=== PATIENT | male | born 1995 | race Caucasian/White ===

== ENCOUNTER 2023-08-12 05:42 | Emergency (ER) | payer BC, SELFPAY ==
[2023-08-12 05:44] VITALS: BP 145/98
--- NOTE | 2023-08-12 06:19 | ED.GENMED ---
History of Present Illness
General
Chief Complaint: Withdrawal Symptoms
Source: patient and family
Exam Limitations: none
Time Seen by Provider: 08/12/23 05:56
History of Present Illness
History of Present Illness:
See MDM
Past History
Past History
ED Past Medical History: None
ED Past Surgical History: None
Social History
Tobacco: Non-smoker
Alcohol: None
Phy Exam
Physical Exam
Physical Exam:
See MDM
Course
Orders/Labs/Results
Orders:
Orders
08/12/23 06:19
CT Head W/o Iv Contrast Urgent
Comment:
Reason For Exam: headache
08/12/23 06:36
Complete Blood Count/With Diff Urgent
Comprehensive Metabolic Panel Urgent
Abnormal Lab Results
08/12/23
06:36
Absolute Lymphs (auto) 1.1 L 10^3/uL
(1.2-3.4)
Lymphocytes % 19.0 L %
(20.5-51.1)
08/12/23 06:36
08/12/23 06:36
Vital Signs
Initial and Last Documented VS:
Initial Vital Signs
Temp Pulse Resp BP Pulse Ox
98.5 F 90 18 145/98 96
08/12/23 05:44 08/12/23 05:44 08/12/23 05:44 08/12/23 05:44 08/12/23 05:44
Last Documented Vital Signs
Temp Pulse Resp BP Pulse Ox
98.5 F 73 6 121/83 98
08/12/23 05:44 08/12/23 07:00 08/12/23 06:53 08/12/23 07:00 08/12/23 07:00
MDM/Problems Addressed
Differential Diagnosis Includes:
HPI and MDM Narrative:
28-year-old male presenting with parents for evaluation of ongoing anxiety and depression. Patient is more concerned that he could be going through benzodiazepine withdrawal. Patient was placed on Wellbutrin several weeks ago for ongoing
depression and anxiety. Patient states symptoms have been progressive so he took a total of 3 doses of 0.5 mg lorazepam over the past several days. After doing research, patient is concerned he could be going through withdrawal. He states he has
been going through insomnia which is new for him.
On exam, patient is anxious. Mother and father at bedside. I discussed with patient that he does not seem to be going through benzodiazepine withdrawal but will perform medical clearance with blood work and CT head given his headache. I did offer
crisis evaluation. Patient declined. He had intake yesterday at [facility] and is scheduled for outpatient therapy today
Physical exam
General: Well appearing and non-toxic
HEENT: protecting airway. Pupils equal reactive
Neck: appears supple
CV: No evidence of cyanosis. Regular rate and rhythm
Resp: No accessory muscle use. Lungs clear
Abd: Non-distended
Extremities: No deformities
Neuro: alert
Psych: Anxious
Skin: Intact
Problems Addressed including Acute and Chronic Conditions affecting care:
1. Insomnia
Acuity: acute
Prognosis: stable
Details: Likely in the setting of anxiety and depression. He is not going through benzodiazepine withdrawal
Updates
Blood work and CT head negative. I again offered inpatient evaluation but patient declined. Mother and father will bring him to his outpatient program later today
Differential Diagnosis (but not limited to): Anxiety, depression, metabolic abnormality
Testing considered: EKG
Drug therapy (if applicable): OTC meds, please see d/c instruction regarding Rx drugs
Amount and/or Complexity of Data Reviewed
Clinical info obtained from: Patient. Mother and father indicate that he has been mentally unwell over the past several weeks
External data reviewed: N/A
Labs I independently reviewed (but not limited to): Electrolytes within normal limits
Radiology: N/A
Pulse Ox: not hypoxic
EKG independently reviewed: N/A
[employer] Up Operator: N/A
Critical Care: N/A
Risk of Complication:
Social Determinants of health: Good social support
Discussed with other providers: N/A
Escalation of Care includes Admit/Obs: After being observed in the Emergency Department, pt stable for discharge.
Occasional wrong word or 'sound a like' substitutions may have occurred due to the inherent limitations of voice recognition software. Read the chart carefully and recognize, using context, where substitutions have occurred.
*Critical Care Note
Total Time (30-74mins, 75-104mins- exclusive of procedures): Not Applicable
ED Attending Note
-
Portions of this chart may have been created with voice recognition software.� Occasional wrong word or��sound alike� substitutions may have occurred due to the inherent limitations of voice recognition software.
Discharge Plan
Departure
Patient Disposition: Home (Routine Discharge)
Date of Disposition: 08/12/23
Time of Disposition: 08:08
Patient with high blood pressure during this ER visit?: No
Discharge Problem:
Insomnia
Referrals:
Mckinley Mosley DO [Family Provider] -
Activity Restrictions/Additional Instructions:
Please return for any worsening symptoms.
You may return at any time if you have further concerns.
As we discussed, you would benefit from inpatient psychiatric care. Please follow-up with your outpatient program today. If symptoms worsen or unchanged, please return.
Interventions
Interventions:
*Risk Screen - Suicide Last Done: 08/12/23 07:17
*General Assessment Last Done: 08/12/23 06:31
*Neglect/Abuse Screening Last Done: 08/12/23 06:31
ED- Fall Risk Assessment Last Done: 08/12/23 06:31
*ED COVID-19 Vaccine History Last Done: 08/12/23 06:29
ED- Neurological Assessment Last Done: 08/12/23 06:31
ED-Psychological Assessment Last Done: 08/12/23 06:31
Discharge Date and Time
Print Language: KENYAN
[2023-08-12 06:29] VITALS: BMI 23.0
[2023-08-12 06:53] VITALS: BP 128/88
[2023-08-12 06:55] LABS: % Basophils 0.3 % (0-2); % Eosinophils 1.3 % (0-6); % Immature Granulocytes 0.2 % (0-0.5); % Monocytes 7.5 % (1.7-9.3); % Neutrophils 71.7 % (42.2-75.2); Absolute Eosinophils 0.1 10^3/uL (0-0.7); Absolute Lymphocytes 1.1 10^3/uL (1.2-3.4); Absolute Monocytes 0.5 10^3/uL (0.1-0.6); Absolute Neutrophils 4.3 10^3/uL (1.4-6.5); Hematocrit 42.9 % (39.0-52.0); Hemoglobin 14.7 g/dL (13.0-18.0); Mean Corp Hgb Conc. 34.3 g/dL (33.0-37.0); Mean Corpuscular Hgb 29.1 pg (27.0-31.0); Mean Corpuscular Volume 84.8 fL (80.0-94.0); Mean Platelet Volume 9.9 fL (7.4-10.4); Nucleated Red Blood Cells % 0 % (-); Platelet Count 160 10^3/uL (130-400); Red Blood Cell Count 5.06 10^6/uL (4.70-6.10); Red Cell Dist. Width 12.2 % (11.5-14.5)
[2023-08-12 07:00] VITALS: BP 121/83
[2023-08-12 07:19] LABS: ALT (SGPT) 16 U/L (0-50); AST (SGOT) 17 U/L (17-59); Albumin 4.5 g/dl (3.5-5.0); Alkaline Phosphatase 57 U/L (38-126); Blood Urea Nitrogen 13 mg/dl (9-20); Calcium 9.5 mg/dl (8.4-10.2); Carbon Dioxide 26 mmol/L (22-30); Chloride 105 mmol/L (98-107); Estimated Creatinine Clearance > 125 ml/min; Glucose 99 mg/dl (70-99); Potassium 3.7 mmol/L (3.5-5.1); Sodium 139 mmol/L (135-145); Total Bilirubin 0.6 mg/dl (0.2-1.3); eGFR > 60.00
[2023-08-12 08:40] VITALS: BP 121/83
== END 2023-08-12 08:41 | disposition home or self-care (01) ==
LOC: EMR 05:42
PROVIDERS: EMERGENCY PHYSICIAN Student in an Organized Health Care Education/Training Program; FAMILY PHYSICIAN Family Medicine
DX: G47.00 Insomnia, unspecified (principal); R51.9 Headache, unspecified; F41.9 Anxiety disorder, unspecified; F32.A Depression, unspecified
CPT/HCPCS: 99284; 70450; 80053; 85025

== ENCOUNTER 2023-08-14 03:27 | Emergency (ER) | payer BC, SELFPAY ==
[2023-08-14 03:28] VITALS: BP 124/90
--- NOTE | 2023-08-14 04:40 | ED.GENMED ---
History of Present Illness
General
Chief Complaint: Sleep Disturbances
Source: patient, family (Mother who is at bedside) and previous hospital records (ED visit for very similar complaint just 2 days ago)
Exam Limitations: none
Time Seen by Provider: 08/14/23 04:25
History of Present Illness
History of Present Illness:
This is a 28-year-old gentleman who admits to significant anxiety, worry, stress that has been ongoing for a number of months. He was started on Wellbutrin XL perhaps 6 weeks ago and since then he has had difficulty sleeping.
He recently began intensive outpatient program at [facility] just 2 days ago and 2 new medications were added by the psychiatrist 2 days ago, he cannot recall the names.
He has follow-up with [facility] on Tuesday, tomorrow, August 14.
He presents to the ED with his mother with ongoing complaints of inability to sleep and he is convinced that he is suffering with benzodiazepine withdrawal after taking just 2 doses of lorazepam, given to him by a friend.
Very similar complaint during ED visit just 2 days ago. During that ER visit he underwent unremarkable laboratory studies as well as unremarkable CT of the head.
Despite multiple reassurances that he cannot physically go through benzodiazepine withdrawal after only 2 doses he is nonetheless convinced that he is 'a special case' and that this is indeed the case.
Past History
Past History
ED Past Medical History: Psychiatric
ED Past Surgical History: None
Social History
Tobacco: Non-smoker
Alcohol: None
Drug: None
Personal: Single
Living: with family
Family History
Family History: Other (Noncontributory)
Phy Exam
Physical Exam
Physical Exam:
GENERAL: 28-year-old male appears his stated age, awake and alert, mildly anxious/apprehensive, speaking in a soft voice. Mother is accompanying.
EYE: anicteric
NECK: Supple, nontender, no meningismus, no significant adenopathy.
ENT: oral mucosa is moist. No rhinorrhea.
LUNGS: No respiratory distress.
NEUROLOGICAL: Alert and oriented x3, no focal neuro deficits. Gait is clinton and steady.
SKIN: Warm and dry, normal color, skin intact. No rash.
MUSCULOSKELETAL: No clubbing or cyanosis no edema. Nontender.
PSYCH: Moderately anxious. Persistent pervasive thoughts/convinced he is suffering from benzodiazepine withdrawal. Poor insight and judgment. Denies suicidal thoughts or plan. Denies hallucinations. Normal speech pattern.
Course
Vital Signs
Initial and Last Documented VS:
Initial Vital Signs
Temp Pulse Resp BP Pulse Ox
98.2 F 86 18 124/90 97
08/14/23 03:28 08/14/23 03:28 08/14/23 03:28 08/14/23 03:28 08/14/23 03:28
Last Documented Vital Signs
Temp Pulse Resp BP Pulse Ox
98.2 F 86 18 124/90 97
08/14/23 03:28 08/14/23 03:28 08/14/23 03:28 08/14/23 03:28 08/14/23 03:28
MDM/Problems Addressed
Differential Diagnosis Includes:
Despite extensive reassurance that benzodiazepine withdrawal requires initial benzodiazepine dependence, he remains convinced that this is his issue.
Recently began intensive outpatient program at [facility], to resume tomorrow on Tuesday.
Recommend he follow-up with psychiatrist tomorrow to discuss his medications as I am concerned that the Wellbutrin that was initiated perhaps 6 weeks ago may be cause for or exacerbating his insomnia.
He was recently prescribed 2 new medications yesterday therefore I will not add additional medications including a benzodiazepine.
Encouraged to follow-up with [facility] tomorrow as already scheduled.
He has been offered a visit with [facility] crisis counselor which he declines.
Chronic conditions affecting care: Psychiatric illness
Acute Exacerbation and/or Progression of Chronic Illness: Psychiatric illness
*Pulse Oximetry
Patient hypoxic: no
*Critical Care Note
Total Time (30-74mins, 75-104mins- exclusive of procedures): Not Applicable
ED Attending Note
-
Portions of this chart may have been created with voice recognition software.� Occasional wrong word or��sound alike� substitutions may have occurred due to the inherent limitations of voice recognition software.
Discharge Plan
Departure
Patient Disposition: Home (Routine Discharge)
Date of Disposition: 08/14/23
Time of Disposition: 04:40
Patient with high blood pressure during this ER visit?: No
Condition: Good
Discharge Problem:
Generalized anxiety disorder, Acute insomnia
Instructions: Generalized Anxiety Disorder (DC), Insomnia (DC), Good sleep hygiene
Prescriptions:
No Action
bupropion HCl [Wellbutrin] 100 mg Tablet
300 mg PO DAILY
Referrals:
[facility] [Outside] - Tomorrow
Mckinley Mosley DO [Family Provider] -
Interventions
Interventions:
*Risk Screen - Suicide Last Done: 08/14/23 03:28
*General Assessment Last Done: 08/14/23 03:28
*Neglect/Abuse Screening Last Done: 08/14/23 03:28
ED-Suicide Risk Assessment Last Done: 08/14/23 04:22
ED- Neurological Assessment Last Done: 08/14/23 04:22
ED-Psychological Assessment Last Done: 08/14/23 04:22
Discharge Date and Time
Print Language: JAPANESE
[2023-08-14 05:01] VITALS: BP 120/71
== END 2023-08-14 05:03 | disposition home or self-care (01) ==
LOC: EMR 03:27
PROVIDERS: EMERGENCY PHYSICIAN Emergency Medicine; FAMILY PHYSICIAN Family Medicine
DX: G47.00 Insomnia, unspecified (principal); F41.1 Generalized anxiety disorder
CPT/HCPCS: 99281

== ENCOUNTER 2023-08-14 13:08 | Emergency (ER) | payer BC, SELFPAY ==
[2023-08-14 13:10] VITALS: BP 133/90
--- NOTE | 2023-08-14 13:56 | ED.GENMED ---
History of Present Illness
General
Chief Complaint: Crisis Evaluation
Source: patient and family
Exam Limitations: none
Time Seen by Provider: 08/14/23 13:18
Nursing documentation reviewed up to this point in time: agreed with
History of Present Illness
History of Present Illness:
Patient to ED for medical clearance. He was seen at [facility] [address] outpatient on Tuesday for his initial appointment Give Rx for Duloxetine and aripiprazole but has not started either medication. Hx of anxiety and depression. States he is taking
Wellbutrin which has not been helpful recently. Denies SI, HI. He is requesting inpatient treatment at [facility].
Past History
Past History
ED Past Medical History: Psychiatric
ED Past Surgical History: None
Social History
Tobacco: Non-smoker
Alcohol: None
Drug: None
Personal: Single
Living: with family
Family History
Family History: Other (Noncontributory)
Review of Systems
Review of Systems
Allergies reviewed?: Yes
All Other Systems: ROS reviewed and negative except as documented in HPI and ROS
Constitutional: Reports no symptoms
EENT: Reports no symptoms
Respiratory: Reports no symptoms
Cardiac: Reports no symptoms
ABD/GI: Reports no symptoms
: Reports no symptoms
Musculoskeletal: Reports no symptoms
Skin: Reports no symptoms
Neurological: Reports no symptoms
Psychiatric: Reports depression and anxiety
Phy Exam
General Physical Exam
General Presentation: well appearing and no apparent distress
General age: appears stated age
General Skin: warm and dry
General Habitus: normal
General Mental: alert
Cardiovascular Exam
Cardiovascular Exam: regular rate/rhythm and no edema
Pulmonary Exam
Pulmonary Exam: lungs clear and no respiratory distress
Gastrointestinal Exam
Gastrointestinal Exam: non tender and soft
Musculoskeletal Exam
Musculoskeletal Exam: full ROM and neuro vasc intact
Skin Exam
Skin Exam: normal color, warm/dry and no rash
Psychiatric Exam
Psychiatric Exam: depressed
Course
Orders/Labs/Results
Orders:
Orders
08/14/23 14:12
Alcohol Urgent
Complete Blood Count/With Diff Urgent
Comprehensive Metabolic Panel Urgent
Abnormal Lab Results
08/14/23
14:12
Absolute Monos (auto) 0.7 H 10^3/uL
(0.1-0.6)
Lymphocytes % 18.3 L %
(20.5-51.1)
08/14/23 14:12
08/14/23 14:12
Vital Signs
Initial and Last Documented VS:
Initial Vital Signs
Temp Pulse Resp BP Pulse Ox
99.6 F 89 18 133/90 97
08/14/23 13:10 08/14/23 13:10 08/14/23 13:10 08/14/23 13:10 08/14/23 13:10
Last Documented Vital Signs
Temp Pulse Resp BP Pulse Ox
99.6 F 89 18 133/90 97
08/14/23 13:10 08/14/23 13:10 08/14/23 13:10 08/14/23 13:10 08/14/23 13:10
*Critical Care Note
Total Time (30-74mins, 75-104mins- exclusive of procedures): Not Applicable
Update Note
Update Note:
Crisis in to see pateint. Victor will continue OP care. As per crisis, no inpatient care needed at this time and he is cleared by crisis for discharage.
ED Attending Note
-
Portions of this chart may have been created with voice recognition software.� Occasional wrong word or��sound alike� substitutions may have occurred due to the inherent limitations of voice recognition software.
Discharge Plan
Departure
Patient Disposition: Home (Routine Discharge)
Date of Disposition: 08/14/23
Time of Disposition: 14:51
Patient with high blood pressure during this ER visit?: No
Condition: Good
Covid-19: Not Applicable
Discharge Problem:
Medical clearance for psychiatric admission
Instructions: Depression, Adult (DC), Anxiety, Adult (DC)
Prescriptions:
No Action
bupropion HCl [Wellbutrin] 100 mg Tablet
300 mg PO DAILY
Referrals:
Armando Ly MD [Family Provider] -
Activity Restrictions/Additional Instructions:
Follow up with [facility] as scheduled.
Interventions
Interventions:
*Risk Screen - Suicide Last Done: 08/14/23 13:16
*General Assessment Last Done: 08/14/23 13:16
*Neglect/Abuse Screening Last Done: 08/14/23 13:16
ED- Fall Risk Assessment Last Done: 08/14/23 16:07
*ED COVID-19 Vaccine History Last Done: 08/14/23 14:06
*Nursing Disposition Last Done: 08/14/23 16:11
ED-Psychological Assessment Last Done: 08/14/23 16:07
Discharge Date and Time
Discharge Date/Time: 08/14/23 16:53
Print Language: [email or web address]
[2023-08-14 14:05] VITALS: BMI 22.4
[2023-08-14 14:21] LABS: % Basophils 0.1 % (0-2); % Eosinophils 0.5 % (0-6); % Immature Granulocytes 0.1 % (0-0.5); % Lymphocytes 18.3 % (20.5-51.1); % Monocytes 8.3 % (1.7-9.3); % Neutrophils 72.7 % (42.2-75.2); Absolute Lymphocytes 1.5 10^3/uL (1.2-3.4); Absolute Monocytes 0.7 10^3/uL (0.1-0.6); Hematocrit 42.9 % (39.0-52.0); Hemoglobin 14.8 g/dL (13.0-18.0); Mean Corp Hgb Conc. 34.5 g/dL (33.0-37.0); Mean Corpuscular Hgb 28.2 pg (27.0-31.0); Mean Corpuscular Volume 81.9 fL (80.0-94.0); Nucleated Red Blood Cells % 0 % (-); Platelet Count 205 10^3/uL (130-400); Red Blood Cell Count 5.24 10^6/uL (4.70-6.10); Red Cell Dist. Width 12.1 % (11.5-14.5); White Blood Cell Count 8.2 10^3/uL (4.8-10.8)
[2023-08-14 14:34] LABS: ALT (SGPT) 15 U/L (0-50); AST (SGOT) 18 U/L (17-59); Albumin 4.7 g/dl (3.5-5.0); Alkaline Phosphatase 54 U/L (38-126); Blood Urea Nitrogen 13 mg/dl (9-20); Calcium 9.8 mg/dl (8.4-10.2); Carbon Dioxide 27 mmol/L (22-30); Chloride 103 mmol/L (98-107); Estimated Creatinine Clearance > 125 ml/min; Glucose 89 mg/dl (70-99); Sodium 138 mmol/L (135-145); Total Bilirubin 0.6 mg/dl (0.2-1.3); Total Protein 7.2 g/dl (6.3-8.2); eGFR > 60.00
[2023-08-14 14:35] LABS: Alcohol None Detected
== END 2023-08-14 16:53 | disposition home or self-care (01) ==
LOC: EMR 13:08
PROVIDERS: Nurse Practitioner; EMERGENCY PHYSICIAN Student in an Organized Health Care Education/Training Program; FAMILY PHYSICIAN Surgery
DX: Z02.79 Encounter for issue of other medical certificate (principal); F32.A Depression, unspecified; F41.9 Anxiety disorder, unspecified
CPT/HCPCS: 99283; 80053; 82077; 85025